=== PATIENT | female | born 1965 | race Caucasian/White ===

== ENCOUNTER 2022-10-11 08:24 | Emergency (ER) | payer OTHER, SELFPAY ==
--- NOTE | ~2022-10-11 | XR_ITS ---
EXAMINATION: XR LUMBOSACRAL SPINE CLINICAL INFORMATION: Low back pain COMPARISON: None available. TECHNIQUE: Three views of the lumbosacral spine. FINDINGS: Bone alignment is normal. No fracture or dislocation. Degenerative disc disease and spondylosis of the lower lumbar spine greatest at L4-L5 and L5-S1. Lower lumbar spine facet arthritis. XR/XR lumbar spine 2-3V IMPRESSION: Degenerative changes. No fracture or dislocation.
[2022-10-11 08:30] VITALS: BP 135/95; PULSE 96; RESP 20; TEMP 36.4; O2SAT 97; BMI 33.3
--- NOTE | 2022-10-11 08:38 | ED.GENADULT ---
HPI - General Adult General Chief complaint: Back Pain/Injury Stated complaint: R side back pain Time Seen by Provider: 10/11/22 08:38 Source: patient and family Mode of arrival: ambulatory Limitations: no limitations History of Present Illness HPI narrative: Patient is a 57-year-old female with history of hypertension, anxiety presenting with 3 days of right lower back pain. She denies any radiation of the pain to her legs. She denies any falls, injury or other trauma. 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 She denies any fevers. She denies any IV drug use. She denies any saddle anesthesia or bowel or bladder incontinence. She has used Tylenol, ibuprofen, topical patches without any relief of symptoms. She denies any numbness or tingling to her lower extremities. She denies any urinary symptoms. She denies any abdominal pain, nausea, vomiting, diarrhea. She reports previous episodes of sciatica but states that this pain is more severe. She describes the pain as constant with intermittent episodes of exacerbation precipitated by spasms. MD complaint: back pain Onset (ago): day(s) Location: back Radiation: non-radiation Severity: severe Quality: burning Pain Consistency: constant Relieving factors: none Associated symptoms: denies other symptoms Treatments prior to arrival: NSAID Related Data Previous Rx's Medication Instructions Recorded cyclobenzaprine 5 mg tablet 5 mg PO TID PRN low back pain 7 10/11/22 days #21 tabs prednisone 20 mg tablet 20 mg PO DAILY 7 days #7 tabs 10/11/22 Allergies Allergy/AdvReac Type Severity Reaction Status Date / Time No Known Allergies Allergy Mild N/A Unverified 02/06/20 17:15 Review of Systems Review of Systems: As per HPI. Yes all other systems are reviewed and are negative Constitutional: Constitutional: Reports as per HPI [facility] Social History Social History Alcohol intake: current Alcohol intake frequency: 0-2 drinks per day Smoked in Last 30 Days: Yes Use of substances other than those prescribed or required for medical reasons: No Advance Directives: No Advance Directives Information Provided: Yes Patient : No Physical Exam ED Vital Signs: Vital Signs - 24 hr 10/11/22 08:30 10/11/22 09:55 Temperature 97.5 F 97.9 F Pulse Rate 96 92 Respiratory Rate 20 16 Blood Pressure 135/95 H 117/78 Pulse Oximetry 97 97 Oxygen Delivery Method Room Air Room Air BMI result Body Mass Index 33.3 Vital signs have been reviewed and appear to be correct. Blood pressure elevated, history of HTN. Heart rate normal. Respiratory rate normal. Temperature normal. Oxygen saturation normal. Const General: cooperative, healthy appearing and no acute distress Orientation/consciousness: oriented to person, oriented to place, oriented to time and patient oriented x3 Limitations: no limitations HENPA Head: Yes normocephalic and Yes atraumatic Ears: external ears normal General nose exam: Normal external nose present Face and sinus: Yes face symmetric Mouth: oropharynx normal and moist mucous membranes Throat: Yes uvula midline Eyes Pupils: Equal, round and reactive pupils present Neck Neck: Yes normal visual inspection and Yes supple Resp Effort & Inspection: normal respiratory effort and able to speak in complete sentences Auscultation: clear to auscultation bilaterally Cardio Rate: regular rate Rhythm: regular rhythm Heart sounds: S1 normal heart sound present and S2 normal heart sound present GI Palpation (GI): Soft to palpation and nontender Auscultation: normoactive bowel sounds General: Yes no CVA tenderness Back/Spine/Pelvis Back: no CVA tenderness Cervical Spine: cervical ROM normal Thoracic/Lumbar Spine: thoracic and lumbar spine normal to inspection, pain with thoraco-lumbar ROM, No thoracic spinal tenderness and No lumbar spinal tenderness Skin General skin exam: elasticity normal and turgor normal Neuro General: oriented to person, oriented to place, oriented to time, patient oriented x3, moves all extremities, no focal motor deficits and CN's II-XI intact bilaterally Cranial nerves: Yes Equal, round and reactive pupils present Cognition (Neuro): normal cognition Motor exam (neuro): 5/5 motor strength present throughout and Normal motor muscle tone present throughout Sensory Exam: Normal double simultaneous stimulation for sensation Extrem General: Yes full ROM, Yes no pedal edema and Yes no calf tenderness Psych Mental Status: mental status grossly normal Affect: normal affect Thought process: Normal thought process present Medications Administered Discontinued Medications Generic Name Dose Route Start Last Admin Trade Name Freq PRN Reason Stop Dose Admin Cyclobenzaprine HCl 10 mg 10/11/22 08:45 10/11/22 08:57 Cyclobenzaprine Hcl 10 Mg Tablet PO 10/11/22 08:46 10 mg ONCE ONE Administration Ketorolac Tromethamine 15 mg 10/11/22 10:50 10/11/22 11:10 Ketorolac Tromethamine 15 Mg/Ml Vial IM 10/11/22 10:51 15 mg ONCE ONE Administration Prednisone 40 mg 10/11/22 08:45 10/11/22 08:57 Prednisone 20 Mg Tablet PO 10/11/22 08:46 40 mg ONCE ONE Administration Medical Decision Making Medical Decision Making [facility] Narrative: Patient is a 57-year-old female with history of hypertension, anxiety presenting with 3 days of right lower back pain. On exam patient appears uncomfortable, is awake, A+Ox3, normal neurological exam without focal deficits, 5/5 equal strength all extremities, no midline spinal tenderness to palpation. Reports history and physical exam findings consistent with lumbar strain. Less likely UTI/pyelonephritis, but will send UA. Discussed with patient that imaging is not indicated as she did not have any trauma, however, patient insisting on x-ray. No red flag findings concerning for epidural abscess, cord compression/cauda equina, osteomyelitis, malignancy or mass, herniated disc, AAA rupture, or retroperitoneal hemorrhage. Will medicate with prednisone and cyclobenzaprine and reassess. 10:37 patient denies any relief of pain from prednisone and cyclobenzaprine. Requesting stronger pain medication. Patient requesting ultrasound or CT scan of her back to determine cause of her pain. Again discussed with patient that her symptoms and physical exam findings are consistent with musculoskeletal pain likely lumbar strain. UA negative for infection, lumbar x-ray shows arthritis without acute findings. Discussed with patient and daughter that she will need to follow-up with her PCP regarding her symptoms, as she may require an outpatient MRI or physical therapy. Differential Diagnosis Differential Diagnoses: The differential diagnosis associated with the presentation includes As above. Admission/Observation Consideration of admission/observation: Escalation of care including admission/observation considered Lab Data [facility] Lab Attestation statement: I reviewed the patient's lab results. Labs: Lab Results 10/11/22 Range/Units 08:41 Urine Color Dark Yellow Urine Appearance Clear Urine pH 5.5 (5.0-9.0) Ur Specific [place] 1.025 (1.005-1.025) Urine Protein Trace (Neg-Trace) mg/dL Urine Glucose (UA) Negative (Negative) mg/dL Urine Ketones Trace (Negative) mg/dL Urine Blood Negative (Negative) Urine Nitrite Negative (Negative) Ur Leukocyte Esterase Negative (Negative) Independent Interpretation I performed an independent interpretation of an: Plain X-Ray Interpretation: I independently reviewed the x-ray and agree with the radiologist's interpretation. Radiology Impression Discussion of test interpretation with radiology: I have reviewed the radiologist's reading. Radiologist Impression: FINDINGS: Bone alignment is normal. No fracture or dislocation. Degenerative disc disease and spondylosis of the lower lumbar spine greatest at L4-L5 and L5-S1. Lower lumbar spine facet arthritis. XR/XR lumbar spine 2-3V IMPRESSION: Degenerative changes. No fracture or dislocation. Independent Historian Clinical information obtained from an independent historian. History obtained from or confirmed by: Other (daughter) External Record Review External record reviewed: Inpatient record, Office record and Outpatient record Prescription Management I considered prescription management with: Pain Medication Discharge Plan Discharge Clinical Impression: Strain of lumbar region Patient Disposition: Home, Self-Care Instructions: Back Pain (ED) Additional Instructions: Follow up with your primary care provider and a construction specialist. Return to the emergency department immediately if your symptoms worsen or if you develop any dizziness, shortness of breath, difficulty breathing, chest pain, blurry vision, loss of vision, nausea, vomiting, abdominal pain, fever, chills, back pain, or any other complaints. Prescriptions: New cyclobenzaprine 5 mg tablet 5 mg PO TID PRN (Reason: low back pain) 7 Days Qty: 21 0RF prednisone 20 mg tablet 20 mg PO DAILY 7 Days Qty: 7 0RF Referrals: [facility] [Provider Group] (Call to establish and follow up with a construction specialist. ) Lei Aguilera MD [Primary Care Provider] - Stand Alone Forms: Work/School Release Interventions: ED Discharge Assessment Last Done: 10/11/22 11:14 Discharge Date/Time: 10/11/22 11:14 Print Language: [place]ian
[2022-10-11 08:48] LABS: Appearance Urine Clear; Color Urine Dark Yellow; Glucose Urine UA Negative (Negative); Leukocyte Esterase Urine Negative (Negative); Nitrite Urine Negative (Negative); PH 5.5 (5.0-9.0); Specific Gravity - Urine 1.025 (1.005-1.025); Urine Blood Negative (Negative); Urine Ketones Trace mg/dL (Negative); Urine Protein Trace mg/dL (Neg-Trace)
[2022-10-11] MEDS: Cyclobenzaprine HCl 10 MG TABLET PO (08:57)
[2022-10-11] MEDS: predniSONE 20 MG TABLET 40 MG PO (08:57)
[2022-10-11 09:55] VITALS: BP 117/78; PULSE 92; RESP 16; TEMP 36.6; O2SAT 97
[2022-10-11] MEDS: Ketorolac Tromethamine 15 MG/ML VIAL IM (11:10)
== END 2022-10-11 11:14 | disposition home or self-care (01) ==
PROVIDERS: Emergency Provider Emergency Medicine Emergency Medical Services; PCP Internal Medicine
DX: S39.012A Strain of muscle, fascia and tendon of lower back, initial encounter (principal); X58.XXXA Exposure to other specified factors, initial encounter; Y93.9 Activity, unspecified; Y92.9 Unspecified place or not applicable; I10 Essential (primary) hypertension; F41.9 Anxiety disorder, unspecified
CPT/HCPCS: 72100; 81003; 96372; 99284; J1885

== ENCOUNTER 2024-06-04 11:39 | Emergency (ER) | payer OTHER, SELFPAY ==
--- NOTE | ~2024-06-04 | XR_ITS ---
EXAMINATION: XR CHEST CLINICAL INFORMATION: vomiting COMPARISON: None available. TECHNIQUE: 2 views of the chest were obtained. FINDINGS: The cardiac, hilar, and mediastinal contours are normal. The lungs are clear bilaterally. There is no pneumothorax or pleural effusion. There is no focal osseous or soft tissue abnormality. Mild degenerative changes of the spine. XR/XR chest 2V IMPRESSION: No active pulmonary disease. Electronically signed by: Farrukh Villanueva MD 06/04/2024 12:18 PM [facility]
[2024-06-04 11:45] VITALS: BP 156/90; PULSE 110; O2SAT 98
--- NOTE | 2024-06-04 11:46 | ED_ITS ---
HPI - Nausea/Vomiting/Diarrhea General Chief complaint: Nausea/Vomiting/Diarrhea Stated complaint: N/V/D X1W,POOR PO INTAKE PER EMS Time Seen by Provider: 06/04/24 11:45 Source: patient Mode of arrival: EMS Limitations: no limitations History of Present Illness HPI Narrative: 59 year old female PMH: HTN, Anxiety presents to the ER via EMS for vomiting and diarrrhea MD elicited complaint: nausea, vomiting and diarrhea Related Data Previous Rx's ?Medication ?Instructions ?Recorded cyclobenzaprine 5 mg tablet 5 mg PO TID PRN low back pain 7 10/11/22 days #21 tabs prednisone 20 mg tablet 20 mg PO DAILY 7 days #7 tabs 10/11/22 famotidine 20 mg tablet (Pepcid) 20 mg PO BID PRN abdominal 06/04/24 discomfort #60 tabs ondansetron 4 mg disintegrating 4 mg PO Q6H #14 tabs 06/04/24 tablet Allergies Allergy/AdvReac Type Severity Reaction Status Date / Time No Known Allergies Allergy Mild N/A Verified 06/04/24 11:50 Review of Systems 2 Review of Systems: Review of systems: General: Patient denies any fever chills recent illness or falls Musculoskeletal: Denies back pain or body aches or other injuries HEENT: denies headache, runny nose, ear pain Respiratory: denies shortness of breath, cough Cardiovascular: no chest pain or palpitations : denies dysuria, frequency Abdomen: no nausea vomiting denies abdominal pain Extremities: no swelling, no pain Skin: no diaphoresis Yes all other systems are reviewed and are negative PMFSH Social History Social History Alcohol intake: current Alcohol intake frequency: 0-2 drinks per day Advance Directives: Yes Advance Directives Information Provided: Yes Advance Directives on File: No Physical Exam 2 Vital Signs: Vital Signs: Last Vital Signs Temp 98.0 F 06/04/24 11:48 Pulse 115 H 06/04/24 11:48 Resp 18 06/04/24 11:48 BP 165/111 H 06/04/24 11:48 Pulse Ox 98 06/04/24 11:48 O2 Del Method Room Air 06/04/24 11:48 BMI result Body Mass Index 31.5 General: Well-appearing well-nourished in no signs of distress HEENT: Normocephalic atraumatic Neck: No signs of JVD, no masses no tenderness or lymphadenopathy Cardiovascular: Regular rate and rhythm Respiratory: Clear to auscultation bilaterally Abdomen: Soft nontender no masses rectal exam performed guiac negative manufacturing quality manager confirmed. Extremities: Normal pedal pulses no signs of edema Skin: Dry warm no rashes Back: No tenderness full ROM Course Course Course Narrative: Patient given fluids and Zofran patient had no episodes of emesis admits to but states she still has nausea her labs were all normal other than a minimally decreased potassium level which I did replete. I will give the patient some more Haldol and Benadryl at this time Reevaluation(s) Reevaluation #1: Patient is getting Haldol at this time Time: 13:13 Reevaluation #2: Patient continues to complaining of nausea no vomiting here with normal labs she has had ice chips and tolerated them. We will send home at this time with PCP follow up on the brat diet. Time: 14:17 Medications Administered Discontinued Medications Generic Name Dose Route Start Last Admin Trade Name Neelima PRN Reason Stop Dose Admin Diphenhydramine HCl 25 mg 06/04/24 13:01 06/04/24 13:14 Diphenhydramine Hcl 50 Mg/Ml Vial IVPUSH 06/04/24 13:02 25 mg ONCE ONE Administration Droperidol 1.25 mg 06/04/24 13:01 06/04/24 13:14 Droperidol 5 Mg/2 Ml Vial IVPUSH 06/04/24 13:02 Not Given ONCE ONE Haloperidol Lactate 5 mg 06/04/24 13:09 06/04/24 13:14 Haloperidol Lactate 5 Mg/Ml Vial IVPUSH 06/04/24 13:10 5 mg STAT STA Administration Sodium Chloride 1,000 mls @ 999 mls/hr 06/04/24 12:00 06/04/24 13:18 Ns IV 06/04/24 13:00 Infused .Q1H1M VISHAL Infusion Ondansetron HCl 4 mg 06/04/24 11:48 06/04/24 11:54 Ondansetron Hcl 4 Mg/2 Ml Vial IVPUSH 06/04/24 11:49 4 mg ONCE ONE Administration Medical Decision Making Medical Decision Making MDM Narrative: Vomiting dehydration electrolyte abnormality check labs and reassess the patient's for nausea on arrival Differential Diagnosis Differential Diagnoses: The differential diagnosis associated with the presentation includes Vomiting GI illness dehydration viral syndrome COVID flu RSV norovirus we are currently on a quadpandemic of COVID flu RSV and norovirus electrolyte abnormality Admission/Observation Consideration of admission/observation: Escalation of care including admission/observation considered Lab Data [facility] Lab Attestation statement: I reviewed the patient's lab results. 06/04/24 12:24 06/04/24 12:24 Labs: Lab Results 06/04/24 Range/Units 12:24 WBC 9.0 (4.8-10.8) X10*3/uL RBC 4.29 (4.20-5.50) X10*6/uL Hgb 14.7 (12.0-16.0) g/dl Hct 40.9 (37.0-47.0) % MCV 95.3 (80.0-98.0) fL MCH 34.3 H (27.0-33.0) pg MCHC 35.9 H (31.0-35.0) g/dl RDW 12.6 (11.0-16.0) % Plt Count 263 (160-400) X10*3/uL MPV 8.6 L (9.4-12.3) fL Immature Gran % (Auto) 0.2 (0.0-0.4) % Neut % (Auto) 75.1 H (45-73) % Lymph % (Auto) 17.8 L (20-40) % [place] % (Auto) 6.5 (2-11) % Eos % (Auto) 0.1 (0-4) % Baso % (Auto) 0.3 (0-2) % Lymph # (Auto) 1.6 (1.2-4.9) X10*3/uL [place] # (Auto) 0.6 (0.1-1.2) X10*3/uL Eos # (Auto) 0.0 (0.0-0.4) X10*3/uL Baso # (Auto) 0.0 (0.0-0.2) X10*3/uL Abs Immat Gran (auto) 0.02 (0.00-0.03) X10*3/uL Absolute Neuts (auto) 6.7 (2.0-8.3) x10*3/uL Absolute Nucleated RBC 0.000 (0.0-0.012) X10*3/uL Nucleated RBC % (auto) 0.0 (0.0-0.2) /100WBC Sodium 135 (135-145) mmol/L Potassium 3.2 L (3.3-5.1) mmol/L Chloride 104 (96-108) mmol/L Carbon Dioxide 24 (22-29) mmol/L Anion Gap 10 L (12-20) BUN 15 (9-16) mg/dL Creatinine 0.91 (0.5-1.4) mg/dL Estim Creat Clear Calc 72.1 Estimated GFR > 60 Random Glucose 111 (60-115) mg/dL Lactic Acid 1.2 (0.5-2.0) mmol/L Calcium 9.6 (8.4-10.2) mg/dL Total Bilirubin 0.9 (0.0-1.0) mg/dL Direct Bilirubin 0.3 (0.0-0.5) mg/dL AST 22 (5-31) U/L ALT 24 (0-31) U/L Alkaline Phosphatase 70 (39-117) U/L Total Protein 6.7 (6.5-8.0) g/dL Albumin 3.9 (3.5-5.0) g/dL Lipase 41 (8-78) U/L Discharge Plan Discharge Clinical Impression: Dehydration, Vomiting Patient Disposition: Home, Self-Care Instructions: Dehydration (ED), Acute Nausea and Vomiting (ED) Additional Instructions: Were seen today in the emergency department for nausea and vomiting. You had labs done which were unremarkable other than a slightly low potassium level. Please try been in his rice applesauce and toast or the brat diet I will send her home with some Zofran if you have more nausea or vomiting can try that he still have vomiting or concerns please return to the ER. Prescriptions: New famotidine [Pepcid] 20 mg tablet 20 mg PO BID PRN (Reason: abdominal discomfort) Qty: 60 0RF ondansetron 4 mg tablet,disintegrating 4 mg PO Q6H Qty: 14 0RF No Action cyclobenzaprine 5 mg tablet 5 mg PO TID PRN (Reason: low back pain) 7 Days Qty: 21 0RF prednisone 20 mg tablet 20 mg PO DAILY 7 Days Qty: 7 0RF Print Language: [place]
[2024-06-04 11:48] VITALS: BP 165/111; PULSE 115; RESP 18; TEMP 36.7; O2SAT 98; BMI 31.5
--- NOTE | 2024-06-04 11:48 | ECG_ITS ---
Test Reason : vomitting Blood Pressure : */* mmHG Vent. Rate : 113 BPM Atrial Rate : 113 BPM P-R Int : 142 ms QRS Dur : 90 ms QT Int : 370 ms P-R-T Axes : 70 59 52 degrees QTcB Int : 507 ms Sinus tachycardia Possible Left atrial enlargement Possible Inferior infarct , age undetermined Cannot rule out Anterior infarct , age undetermined Abnormal ECG When compared with ECG of 29-Apr-2006 10:54, Minimal criteria for Anterior infarct are now Present Nonspecific T wave abnormality has replaced inverted T waves in Inferior leads Nonspecific T wave abnormality now evident in Anterior leads Referred By: Earl Velez Electronically Signed By: Rudy Connor
--- NOTE | 2024-06-04 11:51 | PC.NURSE ---
MD Velez at bedside to evalute pt.
[2024-06-04] MEDS: ondansetron HCL 4 MG/2 ML VIAL IVPUSH (11:54)
[2024-06-04] MEDS: 0.9 % Sodium Chloride 1,000 ML 999 ML IV (11:54)
--- NOTE | 2024-06-04 11:54 | PC.NURSE ---
Pt to Xray.
[2024-06-04 12:29] LABS: MANUAL DIFF FLAG NO
[2024-06-04 12:31] LABS: Basophils Percent Auto 0.3 % (0-2); Eosinophils Percent Auto 0.1 % (0-4); Hematocrit 40.9 % (37.0-47.0); Hemoglobin 14.7 g/dl (12.0-16.0); Imm Gran Abs Auto 0.02 X10*3/uL (0.00-0.03); Imm Gran Pct Auto 0.2 % (0.0-0.4); Lymphocytes Absolute Auto 1.6 X10*3/uL (1.2-4.9); Lymphocytes Percent Auto 17.8 % (20-40); Mean Corpuscular HGB Conc 35.9 g/dl (31.0-35.0); Mean Corpuscular Hemoglobin 34.3 pg (27.0-33.0); Mean Corpuscular Volume 95.3 fL (80.0-98.0); Mean Platelet Volume 8.6 fL (9.4-12.3); Monocytes Absolute Auto 0.6 X10*3/uL (0.1-1.2); Monocytes Percent Auto 6.5 % (2-11); Neutrophils Absolute Auto 6.7 x10*3/uL (2.0-8.3); Neutrophils Percent Auto 75.1 % (45-73); Platelet Count 263 X10*3/uL (160-400); Red Blood Count 4.29 X10*6/uL (4.20-5.50); Red Cell Distribution Width 12.6 % (11.0-16.0)
[2024-06-04 12:54] LABS: Alanine Aminotransferase 24 U/L (0-31); Albumin Level 3.9 g/dL (3.5-5.0); Alkaline Phosphatase 70 U/L (39-117); Anion Gap 10 (12-20); Aspartate Amino Transferase 22 U/L (5-31); Bilirubin Direct 0.3 mg/dL (0.0-0.5); Bilirubin Total 0.9 mg/dL (0.0-1.0); Blood Urea Nitrogen 15 mg/dL (9-16); Calcium 9.6 mg/dL (8.4-10.2); Carbon Dioxide 24 mmol/L (22-29); Chloride 104 mmol/L (96-108); Creatinine Clr Calc Pharmacy 72.1; Estimated Glomerular Filt Rate > 60; Glucose Random 111 mg/dL (60-115); Lactic Acid 1.2 mmol/L (0.5-2.0); Lipase 41 U/L (8-78); Potassium 3.2 mmol/L (3.3-5.1); Sodium 135 mmol/L (135-145); Total Protein 6.7 g/dL (6.5-8.0)
[2024-06-04] MEDS: diphenhydrAMINE HCL 50 MG/ML VIAL 25 MG IVPUSH (13:14)
[2024-06-04] MEDS: Haloperidol Lactate 5 MG/ML VIAL IVPUSH (13:14)
--- NOTE | 2024-06-04 13:40 | PC.NURSE ---
PO potassium to be given when pt less nauseous and able to tolerate PO.
--- NOTE | 2024-06-04 14:09 | PC.NURSE ---
Pt continues to endorse bad nausea despite IV benadryl and haldol. MD Velez made aware.
--- NOTE | 2024-06-04 14:18 | PC.NURSE ---
Pt given chandrakant jose a for PO challenge.
[2024-06-04 14:30] VITALS: BP 168/88; PULSE 110; RESP 18; TEMP 36.7; O2SAT 97
[2024-06-04] MEDS: Potassium Chloride ER 20 MEQ TAB.ER.PRT PO (14:36)
--- NOTE | 2024-06-04 14:40 | PC.NURSE ---
Pt tolerating PO/chandrakant jose a as well as PO potassium.
[2024-06-04 14:43] VITALS: BP 168/88; PULSE 110; RESP 18; TEMP 36.7; O2SAT 97
== END 2024-06-04 14:44 | disposition home or self-care (01) ==
PROVIDERS: Emergency Provider Student in an Organized Health Care Education/Training Program; PCP Internal Medicine
DX: E86.0 Dehydration (principal); R11.2 Nausea with vomiting, unspecified; R19.7 Diarrhea, unspecified; E87.6 Hypokalemia
CPT/HCPCS: 36415; 71046; 80048; 80076; 83605; 83690; 85025; 93005; 96361; 96374; 96375; 99284; J1200; J1630; J2405

== ENCOUNTER → 2024-06-04 11:48 | Outpatient (BNV) | payer OTHER, SELFPAY | PROVIDERS: Emergency Provider Student in an Organized Health Care Education/Training Program; PCP Internal Medicine; Visit Provider Radiology Diagnostic Radiology | DX: R11.10 Vomiting, unspecified (principal) | CPT/HCPCS: 71046 ==

== ENCOUNTER → 2024-06-04 11:48 | Outpatient (BNV) | payer OTHER, SELFPAY | PROVIDERS: Emergency Provider Student in an Organized Health Care Education/Training Program; PCP Internal Medicine; Visit Provider Internal Medicine Cardiovascular Disease | DX: R94.31 Abnormal electrocardiogram [ECG] [EKG] (principal) | CPT/HCPCS: 93010 ==